=== PATIENT | female | born 2000 | race Caucasian/White ===

== ENCOUNTER 2022-12-18 13:29 | Emergency (ER) | payer OTHER, SELFPAY ==
[2022-12-18] MEDS ORDERED: Acetaminophen 325 MG TAB ONE (15:39)
== END 2022-12-18 14:28 | disposition home or self-care (01) ==
LOC: CSHERS 13:29
DX: S33.8XXA Sprain of other parts of lumbar spine and pelvis, initial encounter (principal); J06.9 Acute upper respiratory infection, unspecified; Z20.822 Contact with and (suspected) exposure to COVID-19; W01.0XXA Fall on same level from slipping, tripping and stumbling without subsequent striking against object, initial encounter
CPT/HCPCS: 71046; 72220; 87804; U0003; U0005